=== PATIENT | male | born 1960 ===

== ENCOUNTER 2018-02-07 23:10 | Emergency (ER) | payer OTHER ==
[2018-02-07 23:27] VITALS: BP 110/71; PULSE 73; RESP 18; TEMP 98.2; O2SAT 98
--- NOTE | 2018-02-08 01:04 | ED PDOC ---
Lower Extremity Pain/Injury Time Seen by Provider: 02/08/18 00:13 Chief Complaint (Nursing): Lower Extremity Problem/Injury History Per: Patient History/Exam Limitations: no limitations Onset/Duration Of Symptoms: Days Additional Complaint(s): Patient states he dropped a piece of wood on his R 5th toe yesterday while wearing sneakers. Difficulty with walking because of pain. - Ankle/Foot Description Of Injury: Struck With Object Past Medical History Reviewed: Historical Data, Nursing Documentation, Vital Signs Vital Signs: Last Vital Signs Temp 98.2 F 02/07/18 23:24 Pulse 73 02/07/18 23:24 Resp 18 02/07/18 23:24 BP 110/71 02/07/18 23:24 Pulse Ox 98 02/07/18 23:24 - Family History Family History: States: Unknown Family Hx - Home Medications Home Medications: Ambulatory Orders Medication Instructions Recorded Ibuprofen [Motrin Tab] 600 mg PO Q6 #30 tab 02/08/18 - Allergies Allergies/Adverse Reactions: Allergies Allergy/AdvReac Type Severity Reaction Status Date / Time No Known Allergies Allergy Verified 02/07/18 23:24 Review of Systems ROS Statement: Except As Marked, All Systems Reviewed And Found Negative Physical Exam - Reviewed Nursing Documentation Reviewed: Yes Vital Signs Reviewed: Yes - Physical Exam Appears: Positive for: Well, Non-toxic, No Acute Distress Head Exam: Positive for: ATRAUMATIC, NORMAL INSPECTION, NORMOCEPHALIC Extremity: Positive for: Other (5th digit of R foot with mild swelling, no crepitus/stepoff/obvious deformity, sensation intact) - ECG O2 Sat by Pulse Oximetry: 98 Medical Decision Making Medical Decision Makin Patient presenting with toe injury -contusion v. fracture -will get xray and re-eval 130 -No fracture seen on xray -will place in hard soled shoe with thomas splint -advised followup with podiatry Disposition - Clinical Impression Clinical Impression: Toe contusion - Patient ED Disposition Is Patient to be Admitted: No - Disposition Referrals: Podiatry Clinic [Outside] Disposition: Routine/Home Disposition Time: 01:32 Condition: STABLE Prescriptions: Ibuprofen [Motrin Tab] 600 mg PO Q6 #30 tab Instructions: Toe Injury, Contusion (DC) Forms: [employer] (Czech) Print Language: KITTITIAN
--- NOTE | 2018-02-08 09:39 | RAD ---
PROCEDURE: AP view of the right foot and additional cone-down views of the 5th toe performed. HISTORY: Status post injury COMPARISON: None. FINDINGS: BONES: No evidence of acute displaced fracture nor dislocation. JOINTS: Normal. SOFT TISSUES: Normal. OTHER FINDINGS: None. IMPRESSION: No evidence of acute displaced fracture nor dislocation. If symptoms persist or occult fracture suspected clinically recommend repeat radiographs in 7-10 days as most fractures should become radiographically evident in this timeframe.
== END 2018-02-08 01:45 | disposition home or self-care (01) ==
LOC: H.ER 23:10
DX: S90.121A Contusion of right lesser toe(s) without damage to nail, initial encounter (principal); W22.8XXA Striking against or struck by other objects, initial encounter; Y92.89 Other specified places as the place of occurrence of the external cause

== ENCOUNTER 2018-03-17 12:08 | Emergency (ER) | payer OTHER ==
--- NOTE | 2018-03-17 12:52 | ED PDOC ---
Lower Extremity Pain/Injury Time Seen by Provider: 03/17/18 12:25 Chief Complaint (Nursing): Lower Extremity Problem/Injury Chief Complaint (Provider): Right Fifth Toe Pain History Per: Patient History/Exam Limitations: no limitations Onset/Duration Of Symptoms: Days (x2 months) Current Symptoms Are (Timing): Still Present (persistent) Additional Complaint(s): 57 year old male presents to the ED for evaluation of continued right fifth toe pain. He reports that on 02/07/18 a piece of wood fell on the toe, and the next day early in the morning he was evaluated here with an unremarkable foot XR, but was recommended to repeat the XR in 7-10 days. Patient was placed in a surgical shoe and advised to follow up at the podiatry clinic but he failed to do so. Currently, he complains of persistent pain and swelling to the toe, with difficulty ambulating. He denies taking any medications for symptoms in the last two weeks. Otherwise, (-) loss of sensation, (-) drainage, (-) fever, (-) chills, (-) new injury. Patient has no other complaints at this time. Tetanus up to date. PMD: [facility] Past Medical History Reviewed: Historical Data, Nursing Documentation, Vital Signs Vital Signs: Last Vital Signs Temp 98.8 F 03/17/18 12:21 Pulse 70 03/17/18 12:21 Resp 16 03/17/18 12:21 BP 107/68 03/17/18 12:21 Pulse Ox 100 03/17/18 12:21 - Medical History PMH: Diabetes, HTN - Surgical History Other surgeries: procedure to right hand to remove infected foreign body - Family History Family History: States: Unknown Family Hx - Social History Current smoker - smoking cessation education provided: No Alcohol: None Drugs: Denies - Immunization History Hx Tetanus Toxoid Vaccination: Yes - Home Medications Home Medications: Ambulatory Orders Medication Instructions Recorded Ibuprofen [Motrin Tab] 600 mg PO Q6 #30 tab 02/08/18 Meloxicam [Mobic] 15 mg PO DAILY #10 tab 03/17/18 - Allergies Allergies/Adverse Reactions: Allergies Allergy/AdvReac Type Severity Reaction Status Date / Time No Known Allergies Allergy Verified 02/07/18 23:24 Review of Systems ROS Statement: Except As Marked, All Systems Reviewed And Found Negative Constitutional: Negative for: Fever, Chills Musculoskeletal: Positive for: Other (right fifth toe pain and swelling, no drainage) Neurological: Negative for: Other (loss of sensation) Physical Exam - Reviewed Nursing Documentation Reviewed: Yes Vital Signs Reviewed: Yes - Physical Exam Comments: GENERAL APPEARANCE: Patient is awake, alert, oriented x 3, in no acute distress , resting comfortably. SKIN: Warm, dry; (-) cyanosis. NECK: Supple, FROM ENT: Mucus membranes moist. Airway patent, (-) stridor. HEART AND CARDIOVASCULAR: (-) irregularity; (-) murmur CHEST AND RESPIRATORY: (-) rales, (-) rhonchi, (-) wheezes; breath sounds equal. Respirations even and nonlabored. RIGHT LOWER EXTREMITY: Surgical shoe in place to foot. After removal of shoe, fifth toe is edematous, with faint erythema, and diffuse tenderness, but (-) ecchymosis, (-) warmth (-) skin break. Sensation intact. (+) residual ecchymosis to right fifth toenail. Remainder of foot, ankle, and knee: non tender, full ROM. (-) calf tenderness, (-) pedal edema. NEURO AND PSYCH: Mental status as above. Speech clear, gait steady. (-) facial asymmetry - Laboratory Results Result Diagrams: 03/17/18 12:47 03/17/18 12:47 - ECG O2 Sat by Pulse Oximetry: 100 (RA) Pulse Ox Interpretation: Normal Medical Decision Making Medical Decision Making: Time: 1233 Initial Impression: toe contusion, r/o occult fx Initial Plan: --Toradol 30 mg IM --Consult placed to podiatry --Re-evaluation 1235 Spoke to podiatry resident Ti Jeffrey who recommends basic labs to r/o infection and a repeat XR. Agreeable to patient evaluation in ED. BMP, CBC with differential, and right foot XR ordered. 1320 Labs reviewed and grossly unremarkable. Foot XR: (+)transverse, nondisplaced fracture through the distal phalanx of the right 5th toe (-) dislocation Pending podiatry evaluation. 1328 Podiatry at bedside[address] patient in thomas tape and reapply surgical shoe. See consult note. 1346 As per resident Wojciech, patient is to follow up with Dr Renteria at his office within the week. 1350 On re-evaluation, patient reports improvement of symptoms. On exam, patient remains AAOx3, in no acute distress. Neck is supple, lungs CTA, cardiac RRR, neuro exam shows no focal findings. VSS, stable for discharge. RICE encouraged. Diagnostic results d/w the patient in great detail. Dx of toe pain, toe fracture d/w the patient. Based on history, exam and diagnostic results plan will be for discharge and outpatient podiatry follow up. Advised to follow up with podiatry in 1-2 days without fail. Advised to take medication as prescribed. Return to the emergency room at any time for any new or worsening symptoms. Patient states he fully agrees with and understands discharge instructions. States that he agrees with the plan and disposition. Verbalized and repeated discharge instructions and plan. I have given the patient opportunity to ask any additional questions. Scribe Attestation: Documented by Megan Garcia acting as a scribe for Deedee Lee PA-C. Provider Scribe Attestation: All medical record entries made by the Scribe were at my direction and personally dictated by me. I have reviewed the chart and agree that the record accurately reflects my personal performance of the history, physical exam, medical decision making, and the department course for this patient. I have also personally directed, reviewed, and agree with the discharge instructions and disposition. Disposition - Clinical Impression Clinical Impression: Toe fracture, Toe pain - Patient ED Disposition Is Patient to be Admitted: No Counseled Patient/Family Regarding: Studies Performed, Diagnosis, Need For Followup, Rx Given - Disposition Referrals: James Renteria DPM [Staff Provider] - Disposition: Routine/Home Disposition Time: 13:51 Condition: STABLE Additional Instructions: FOLLOW UP WITH PODIATRY DIRECTED THIS WEEK. RETURN TO ED WITH ANY NEW OR WORSENING SYMPTOMS. AVOID WEIGHT BEARING. KEEP SURGICAL SHOE AND THOMAS TAPE IN PLACE. Prescriptions: Meloxicam [Mobic] 15 mg PO DAILY #10 tab Instructions: Toe Fracture, Toe Injury Forms: [facility] (Israeli) Print Language: LUXEMBOURGER - POA Present On Arrival: Falls Or Trauma (on 02/07/18) Results - Lab Results Lab Results: 03/17/18 03/17/18 12:47 12:47 WBC 6.3 RBC 4.91 Hgb 15.1 Hct 43.1 MCV 87.8 MCH 30.7 MCHC 35.0 RDW 12.6 Plt Count 183 MPV 7.9 Neut % (Auto) 58.9 Lymph % (Auto) 28.2 Rooks % (Auto) 7.0 Eos % (Auto) 5.3 H Baso % (Auto) 0.6 Neut # (Auto) 3.7 Lymph # (Auto) 1.8 Rooks # (Auto) 0.4 Eos # (Auto) 0.3 Baso # (Auto) 0.0 Sodium 139 Potassium 3.9 Chloride 100 Carbon Dioxide 28 Anion Gap 15 BUN 15 Creatinine 0.8 Est GFR ( Amer) > 60 Est GFR (Non-Af Amer) > 60 Random Glucose 113 H Calcium 9.5
[2018-03-17 12:53] LABS: BASO % 0.6 % (0.0-2.0); EOS # 0.3 K/uL (0.0-0.7); EOS % 5.3 % (0.0-4.0); HEMOGLOBIN 15.1 g/dL (12.0-18.0); LYMPH # 1.8 K/uL (1.0-4.3); LYMPH % 28.2 % (20.0-40.0); MEAN CELL VOLUME 87.8 fl (80.0-94.0); MEAN CORPUSCULAR HEMOGLOBIN 30.7 pg (27.0-31.0); MEAN PLATELET VOLUME 7.9 fl (7.2-11.7); MONO # 0.4 K/uL (0.0-0.8); NEUT # 3.7 K/uL (1.8-7.0); NEUT % 58.9 % (50.0-75.0); NRBC % 0.1 % (0.0-0.0); RBC 4.91 Mil/uL (4.40-5.90); RED CELL DISTRIBUTION WIDTH 12.6 % (11.5-14.5); WHITE BLOOD COUNT 6.3 K/uL (4.8-10.8)
[2018-03-17 13:06] LABS: BLOOD UREA NITROGEN 15 mg/dl (9-20); CALCIUM 9.5 mg/dL (8.4-10.2); GFR AFRICAN-AMERICAN > 60; GFR NON-AFRICAN AMERICAN > 60
--- NOTE | 2018-03-17 14:02 | CP.PCM.CON ---
History of Present Illness - History of Present Illness History of Present Illness: 57 yo presents to ED and seen at bedside for right fifth digit pain secondary to wood falling on his foot one month ago. States he presented to the ED a month ago when the initial incident happened and was given a surgical shoe and told to follow up with the podiatry clinic which he did not do. States that the toe is still painful and that it is still swollen. States that he was given some pain medication and finished it in the first week and has not taken any since. He presents today with his surgical shoe and denies N/V/f/c/SOB/CP PMHx diabetes HTN PSHx right hand removal of foreign body All NKDA Past Patient History - Past Social History Alcohol: None Drugs: Denies - CARDIAC Hx Hypertension: Yes - PSYCHIATRIC Hx Substance Use: No Meds Allergies/Adverse Reactions: Allergies Allergy/AdvReac Type Severity Reaction Status Date / Time No Known Allergies Allergy Verified 02/07/18 23:24 Physical Exam - Constitutional Appears: Well, Non-toxic, No Acute Distress - Head Exam Head Exam: ATRAUMATIC, NORMOCEPHALIC - Extremities Exam Additional comments: Right LE focused Vasc: DP and PT pulses palpable 2/4; cap refill <3 seconds to all digits; temp gradient warm to cool; mild edema localized to the fifth digit Derm: skin temp and turgor wnl; no open lesions, no drainage, no streaking evidenced, no clinical signs of infection; erythema localized to the fifth digit Neuro: gross and protective sensation within normal limits Ortho: pain on palpatoin of the fifth digit greatest distally; able to move digits without pain; no gross deformities present - Neurological Exam Neurological exam: Alert, Oriented x3 - Psychiatric Exam Psychiatric exam: Normal Affect, Normal Mood Results - Vital Signs Recent Vital Signs: Last Vital Signs Temp 98.8 F 03/17/18 12:21 Pulse 70 03/17/18 12:21 Resp 16 03/17/18 12:21 BP 107/68 03/17/18 12:21 Pulse Ox 100 03/17/18 13:58 - Labs Result Diagrams: 03/17/18 12:47 03/17/18 12:47 Labs: Laboratory Results - last 24 hr 03/17/18 03/17/18 12:47 12:47 WBC 6.3 RBC 4.91 Hgb 15.1 Hct 43.1 MCV 87.8 MCH 30.7 MCHC 35.0 RDW 12.6 Plt Count 183 MPV 7.9 Neut % (Auto) 58.9 Lymph % (Auto) 28.2 Rutherford % (Auto) 7.0 Eos % (Auto) 5.3 H Baso % (Auto) 0.6 Neut # (Auto) 3.7 Lymph # (Auto) 1.8 Rutherford # (Auto) 0.4 Eos # (Auto) 0.3 Baso # (Auto) 0.0 Sodium 139 Potassium 3.9 Chloride 100 Carbon Dioxide 28 Anion Gap 15 BUN 15 Creatinine 0.8 Est GFR ( Amer) > 60 Est GFR (Non-Af Amer) > 60 Random Glucose 113 H Calcium 9.5 Assessment & Plan - Assessment and Plan (Free Text) Assessment: 57 yo male presents to ED for right fifth digit nondisplaced distal phalanx fracture Plan: Patient seen and evaluated Discussed with attending Dr. Renteria X-rays reviewed and compared to last visits - evidence of mild increase in radiolucency at the right fifth digit distal phalanx, still no displacement or signs for any invasive treatment Jack splint applied to toe and told to continue to ambulate in surgical shoe on right foot Discussed RICE protocol and told to follow daily SIMRAN wrap applied to right foot to decrease chance of swelling globally in right foot Will follow up at Dr. Monet office this week, given instructions to make an appointment Thank you for consult - Date & Time Date: 03/17/18 Time: 14:07
[2018-03-17 14:27] VITALS: BP 130/78; PULSE 78; RESP 18; TEMP 98
[2018-03-17 20:17] VITALS: O2SAT 100
--- NOTE | 2018-03-18 08:14 | RAD ---
Date of service: 03/17/2018 PROCEDURE: Right Foot Radiographs. HISTORY: r/o 5th toe fx COMPARISON: None. FINDINGS: BONES: Fracture 5th distal phalanx, nondisplaced. JOINTS: Normal. SOFT TISSUES: Normal. OTHER FINDINGS: None. IMPRESSION: Fracture 5th distal phalanx, nondisplaced.
== END 2018-03-17 14:27 | disposition home or self-care (01) ==
LOC: H.ER 12:08
DX: S92.351A Displaced fracture of fifth metatarsal bone, right foot, initial encounter for closed fracture (principal); W22.8XXA Striking against or struck by other objects, initial encounter; Y92.89 Other specified places as the place of occurrence of the external cause; E11.9 Type 2 diabetes mellitus without complications; I10 Essential (primary) hypertension
CPT/HCPCS: 73630; 80048; 85025; 96372; 99282; J1885